=== PATIENT | female | born 1985 | race American Indian/Alaskan Native ===

== ENCOUNTER 2016-11-01 08:21 | Emergency (ER) | payer BC ==
[2016-11-01 08:32] VITALS: BMI 18.2
[2016-11-01] MEDS ORDERED: Oxycodone/Acetaminophen 5/325 mg Tab PO STA (08:32)
--- NOTE | 2016-11-01 08:36 | ED PDOC ---
Arrival/HPI - General Time Seen by Provider: 11/01/16 08:28 - History of Present Illness Narrative History of Present Illness (Text): 11/01/16 08:36 Patient is a 31 y/o F presenting with laceration to R hand. She reports that she cut her hand on a broken ceramic dish. Family/Social History Family/Social History: No Known Family HX Allergies/Home Meds Allergies/Adverse Reactions: Allergies No Known Allergies Allergy (Verified 11/01/16 08:34) Physical Exam Vital Signs Temp Pulse Resp BP Pulse Ox 11/01/16 09:55 50 L 20 99 11/01/16 08:38 97.0 F L 47 L 20 123/72 99 Temperature: Afebrile Blood Pressure: Normal Pulse: Regular Respiratory Rate: Normal Appearance: Positive for: Well-Appearing, Non-Toxic, Comfortable Pain Distress: Mild Mental Status: Positive for: Alert and Oriented X 3 - Systems Exam Head: Present: Atraumatic, Normocephalic Pupils: Present: PERRL Extroacular Muscles: Present: EOMI Conjunctiva: Present: Normal Mouth: Present: Moist Mucous Membranes Neck: Present: Normal Range of Motion Back: Present: Normal Inspection Upper Extremity: Present: Other (1cm eliptical laceration on dorsum surface of R hand, at base of 5th digit, unable to actively extend, normal flexion, no active bleeding, distal pulses intact) Lower Extremity: Present: Normal Inspection Neurological: Present: GCS=15, CN II-XII Intact, Speech Normal Skin: Present: Laceration Psychiatric: Present: Alert, Oriented x 3 Medical Decision Making ED Course and Treatment: 11/01/16 08:35 Laceration to R hand, concerning for extensor tendon involvement. Will get xray to r/o foreign body or fracture. Will update tetanus and give pain medication 11/01/16 09:39 Patient has normal flexion of digits but has decreased strength with extension. I am concerned about extensor tendon damage. I paged Dr. Burroughs, clinical transformation specialist for Hand coverage. He requests patient to be send directly to his office so he can evaluate. Wound was dressed. Patient was given copies of imaging on CD and directed to go immediately to his office for further evaluation of laceration. - RAD Interpretation Radiology Orders: 11/01/16 08:32 HAND RIGHT 3 VIEWS [RAD] Stat - Medication Orders Current Medication Orders: Discontinued Medications Oxycodone/Acetaminophen (Percocet 5/325 Mg Tab) 1 tab PO STAT STA Stop: 11/01/16 08:33 Last Admin: 11/01/16 09:04 Dose: Not Given Non-Admin Reason: Patient Refused Tetanus/Reduced Diphtheria/Acell Pertussis (Adacel) 0.5 ml IM .ONCE ONE Stop: 11/01/16 08:33 Last Admin: 11/01/16 09:00 Dose: 0.5 ml Tetanus/Reduced Diphtheria/Acell Pertussis (Adacel) Confirm Administered Dose 0.5 ml IM .STK-MED ONE Stop: 11/01/16 08:44 Disposition/Present on Arrival - Present on Arrival Any Indicators Present on Arrival: No - Disposition Have Diagnosis and Disposition been Completed?: Yes Diagnosis: Laceration of hand Disposition: HOME/ ROUTINE Disposition Time: 09:39 Patient Plan: Discharge Condition: GOOD Additional Instructions: Go directly to Dr. Burroughs's office. Take copy of CD. Tetanus was updated. Referrals: Feliz Burroughs MD [Staff Provider] - Forms: [employer] (Czech)
[2016-11-01 08:41] VITALS: BP 123/72; RESP 20; TEMP 97; O2SAT 99
[2016-11-01 10:02] VITALS: PULSE 50
--- NOTE | 2016-11-01 17:21 | RAD ---
PROCEDURE: Right Hand Radiographs. HISTORY: R hand laceration, over 5th finger COMPARISON: None available. FINDINGS: BONES: No acute displaced fracture. JOINTS: No dislocation. SOFT TISSUES: Unremarkable. No evidence of radiopaque foreign body. OTHER FINDINGS: None. IMPRESSION: No acute displaced fracture, dislocation, or significant joint effusion identified. If symptoms persist, or if there is continued clinical concern, x-ray follow-up in 7-10 days should be considered.
== END 2016-11-01 10:03 | disposition home or self-care (01) ==
LOC: MERGE 08:21 → H.ER 08:21
DX: S61.411A Laceration without foreign body of right hand, initial encounter (principal); W25.XXXA Contact with sharp glass, initial encounter; Y92.89 Other specified places as the place of occurrence of the external cause

== ENCOUNTER 2016-11-02 20:34 | Emergency (ER) | payer BC ==
[2016-11-02 20:35] VITALS: BMI 18.2
[2016-11-02 20:50] VITALS: BP 123/78; PULSE 56; RESP 20; TEMP 98.3; O2SAT 99
--- NOTE | 2016-11-02 21:01 | ED PDOC ---
HPI: Wound Care - HPI Time Seen by Provider: 11/02/16 20:50 Chief Complaint (Nursing): Wound Check Chief Complaint (Provider): Wound check History Per: Patient Exam Limitations: no limitations Additional Complaint(s): Patient was seen in the ED yesterday for an evaluation of a tendon injury and followed up with Dr. Burroughs at his office for a repair. Patient presents today w / concern because after working and using her right hand, she noticed her finger splint was improperly placed and is rerquesting to have it fixed. Patient was advised by Dr. Burroughs to not removed dressing and to follow up in 1 week. Patient has been taking motrin 800 w/o control of pain and is requesting stronger medications. No new medical complaints. Past Medical History Reviewed: Historical Data, Nursing Documentation, Vital Signs Vital Signs: Last Vital Signs Temp 98.3 F 11/02/16 20:46 Pulse 56 L 11/02/16 20:46 Resp 20 11/02/16 20:46 BP 123/78 11/02/16 20:46 Pulse Ox 99 11/02/16 20:46 - Medical History PMH: Asthma - Surgical History Surgical History: No Surg Hx - Family History Family History: States: No Known Family Hx - Home Medications Home Medications: Ambulatory Orders Medication Instructions Recorded oxyCODONE/Acetaminophen [Percocet 1 ea PO Q6 PRN #5 tab 11/02/16 5/325 mg Tab] - Allergies Allergies/Adverse Reactions: Allergies Allergy/AdvReac Type Severity Reaction Status Date / Time No Known Allergies Allergy Verified 11/01/16 08:34 Review of Systems ROS Statement: Except As Marked, All Systems Reviewed And Found Negative Musculoskeletal: Positive for: Hand Pain (splint loose rt hand) Physical Exam - Reviewed Nursing Documentation Reviewed: Yes Vital Signs Reviewed: Yes - Physical Exam Appears: Positive for: Well, Non-toxic, No Acute Distress Head Exam: Positive for: ATRAUMATIC, NORMAL INSPECTION, NORMOCEPHALIC Skin: Positive for: Normal Color, Warm, DRY Eye Exam: Positive for: Normal appearance Neck: Positive for: Normal Cardiovascular/Chest: Positive for: Regular Rate, Rhythm Respiratory: Positive for: CNT, Normal Breath Sounds Extremity: Positive for: Other (right hand 4th and 5th digit in splint, bandages are loose) Neurologic/Psych: Positive for: Alert, Oriented - ECG O2 Sat by Pulse Oximetry: 99 (RA) Pulse Ox Interpretation: Normal Medical Decision Making Medical Decision Making: Plan: -- COban adjusted to reposition splint and allow proper extension of MCP at 5th digit of right hand. Patient informed to avoid use of hand and to follow up with Dr. Burroughs without fail. Patient stable for d/c home Scribe Attestation: Documented by Sirisha Mc acting as a scribe for LUIGI Blake Provider Attestation: All medical record entries made by the Scribe were at my direction and personally dictated by me. I have reviewed the chart and agree that the record accurately reflects my personal performance of the history, physical exam, medical decision making, and the department course for this patient. I have also personally directed, reviewed, and agree with the discharge instructions and disposition. Disposition - Clinical Impression Clinical Impression: Hand injury - Patient ED Disposition Is Patient to be Admitted: No - Disposition Disposition: Routine/Home Disposition Time: 21:22 Condition: FAIR Prescriptions: oxyCODONE/Acetaminophen [Percocet 5/325 mg Tab] 1 ea PO Q6 PRN #5 tab PRN Reason: Pain, Severe (8-10) Instructions: Splint Care (ED) Forms: [employer] (Indian)
== END 2016-11-02 21:24 | disposition home or self-care (01) ==
LOC: H.ER 20:34
DX: Z47.89 Encounter for other orthopedic aftercare (principal)